=== PATIENT | female | born 1955 | race Caucasian/White ===

== ENCOUNTER 2019-05-27 00:08 | Day surgery (SDC) | payer OTHER, SELFPAY ==
[2019-05-16 10:50] VITALS: BMI 28.5
[2019-05-27 07:11] VITALS: BP 131/87; PULSE 87; RESP 16; TEMP 37; O2SAT 96
[2019-05-27] MEDS: LACTATED RINGERS 1,000 ML 150 ML IV CONT (07:16)
--- NOTE | 2019-05-27 07:22 | WPDANESEPPF ---
Anes - Initial Pre Proc Eval Procedure: Operation Date: 05/27/19 08:00 Proposed Procedures p Screening Colonoscopy - Jonah Deutsch MD Date/Time: 05/27/19 07:22 Surgeon: Jonah Deutsch MD Pre Op Diagnosis: Hx Of Colon Polyps Patient Data Age: 64 Gender: F Height: 1.6 m Weight: 74.8 kg Last Vital Signs Temp 37.0 C 05/27/19 07:11 Pulse 87 05/27/19 07:11 Resp 16 05/27/19 07:11 BP 131/87 05/27/19 07:11 Pulse Ox 96 05/27/19 07:11 Allergies Allergy/AdvReac Type Severity Reaction Status Date / Time poison winnie extract Allergy Unknown unknown Verified 05/27/19 06:48 pollen extracts Allergy Unknown unknown Verified 05/27/19 06:48 simvastatin Allergy Unknown unknown Verified 05/27/19 06:48 sulfamethizole Allergy Unknown liver Verified 05/27/19 06:48 injury sulfamethoxazole Allergy Unknown unk Verified 05/27/19 06:48 trimethoprim Allergy Unknown liver Verified 05/27/19 06:48 injury Home Medications Medication Instructions Recorded Confirmed Type cholecalciferol (vitamin D3) 125 5,000 unit PO DAILY #90 cap 03/20/19 05/16/19 Rx mcg (5,000 unit) capsule estradiol 10 mcg vaginal tablet 10 mcg VAGINAL 2XW #24 tablet 03/20/19 05/16/19 Rx montelukast 10 mg tablet 10 mg PO .in the evening #90 tablet 03/20/19 05/16/19 Rx pitavastatin calcium 4 mg tablet 4 mg PO DAILY #90 tablet 03/20/19 05/16/19 Rx valsartan 320 1 tablet PO DAILY #90 tablet 03/20/19 05/16/19 Rx mg-hydrochlorothiazide 25 mg tablet duloxetine 20 mg capsule,delayed 20 mg PO BID 04/11/19 05/27/19 History release Patient hx anesthesia problems: none Family hx anesthesia problems: none PMFSH Past Medical History Medical History (Updated 05/27/19 @ 07:26 by Sagar Cisneros MD) Chronic GERD HTN (hypertension) Mild intermittent asthma Mixed hyperlipidemia ZEHRA (obstructive sleep apnea) Family History Family History (Updated 02/12/19 @ 08:55 by DOCTOR UNKNOWN) Grandparent Hypertension Social History Social History Smoking status: Never smoker Second hand tobacco smoke exposure: Yes Alcohol intake: current Gender identity (if verbalized by the patient): Female Anes - Eval Final PreProcedure Day of Procedure 05/27/19 07:22 Patient weight: overweight Heart: regular rate and rhythm Lungs: clear to auscultation and normal air movement Airway: Mallampati scale class II Neurological: alert and oriented Last oral intake: >/= 8 hours ASA classification: II Emergent: no Anesthetic plan: proceed Anesthesia type and monitoring: general GIVS Informed Consent: The patient's anesthetic plan and its attendant risks and benefits were discussed with the patient/family/POA. Questions were solicited and answers provided to the satisfaction of the patient/family/POA.
--- NOTE | 2019-05-27 08:16 | PM.HPGS ---
History of Present Illness History of Present Illness Consent: Risks, benefits, and alternatives have been discussed and questions answered. Patient agrees to proceed with procedure. Chief complaint: Hx Of Colon Polyps Narrative: Viki Mitchell is a 64 year old female with history of polyps, last colonoscopy about 7 years ago Review of Systems Constitutional: Constitutional: Denies headache(s) and Denies weakness Eyes: Eyes: Denies blurry vision ENT: Reports Normal hearing present, Denies headache(s) and Denies neck pain Cardiovascular: Cardiovascular: Denies chest pain and Denies dyspnea Respiratory: Respiratory: Denies dyspnea Gastrointestinal: Gastrointestinal: Reports no additional gastrointestinal complaints Genitourinary: Genitourinary: Denies dysuria Musculoskeletal: Musculoskeletal: Denies neck pain Integumentary/Breasts: Skin/Breast: Denies dry skin Neurologic: Reports Normal hearing present, Denies headache(s) and Denies weakness Psychiatric: Psychiatric: Denies anxiety Endocrine: Endocrine: Denies change in body appearance Hematologic/Lymphatic: Hematologic/Lymphatic: Denies easy bleeding Allergic/Immunologic: Allergic/Immunologic: Denies urticaria PMFSH Past Medical History Medical History (Updated 05/27/19 @ 08:17 by Jonah Deutsch MD) Adenomatous colon polyp Chronic GERD HTN (hypertension) Mild intermittent asthma Mixed hyperlipidemia ZEHRA (obstructive sleep apnea) Family History Family History (Updated 02/12/19 @ 08:55 by DOCTOR UNKNOWN) Grandparent Hypertension Social History Social History Smoking status: Never smoker Second hand tobacco smoke exposure: Yes Alcohol intake: current Gender identity (if verbalized by the patient): Female Meds Home Medications and Allergies Home Medications Medication Instructions Recorded Confirmed Type cholecalciferol (vitamin D3) 125 5,000 unit PO DAILY #90 cap 03/20/19 05/16/19 Rx mcg (5,000 unit) capsule estradiol 10 mcg vaginal tablet 10 mcg VAGINAL 2XW #24 tablet 03/20/19 05/16/19 Rx montelukast 10 mg tablet 10 mg PO .in the evening #90 tablet 03/20/19 05/16/19 Rx pitavastatin calcium 4 mg tablet 4 mg PO DAILY #90 tablet 03/20/19 05/16/19 Rx valsartan 320 1 tablet PO DAILY #90 tablet 03/20/19 05/16/19 Rx mg-hydrochlorothiazide 25 mg tablet duloxetine 20 mg capsule,delayed 20 mg PO BID 04/11/19 05/27/19 History release Allergies Allergy/AdvReac Type Severity Reaction Status Date / Time poison winnie extract Allergy Unknown unknown Verified 05/27/19 06:48 pollen extracts Allergy Unknown unknown Verified 05/27/19 06:48 simvastatin Allergy Unknown unknown Verified 05/27/19 06:48 sulfamethizole Allergy Unknown liver Verified 05/27/19 06:48 injury sulfamethoxazole Allergy Unknown unk Verified 05/27/19 06:48 trimethoprim Allergy Unknown liver Verified 05/27/19 06:48 injury Vital Signs Vital Signs - 24 hr 05/27/19 07:11 Temperature 98.6 F Pulse Rate 87 Respiratory Rate 16 Blood Pressure 131/87 Pulse Oximetry 96 Exam Const: General: comfortable and no acute distress HENMT: General nose exam: Normal nares present Eyes: General: appearance normal, both eyes and all related structures Neck: Neck: no JVD Resp: Auscultation: clear to auscultation bilaterally Cardio: Rate: regular rate Rhythm: regular rhythm GI: Inspection: non-distended GI Palp: Yes Soft to palpation Skin: General skin exam: normal color Neuro: General: gait normal Speech: normal speech Extrem: General: normal to inspection Psych: Mental Status: mental status grossly normal Assessment and Plan Assessment and plan (1) Adenomatous colon polyp: Qualifiers: Colon location: unspecified part of colon Qualified Code(s): D12.6 - Benign neoplasm of colon, unspecified Code(s): D12.6 - Benign neoplasm of colon, unspecif
[2019-05-27 08:37] VITALS: BP 100/68; PULSE 65; RESP 16; O2SAT 98
[2019-05-27 08:47] VITALS: BP 102/68; PULSE 68; RESP 16; O2SAT 98
[2019-05-27 08:57] VITALS: BP 110/68; PULSE 60; RESP 16; O2SAT 98
== END 2019-05-27 09:12 | disposition home or self-care (01) ==
PROVIDERS: PCP Internal Medicine; Visit Provider Internal Medicine Gastroenterology
PROC: 0DJD8ZZ Inspection of Lower Intestinal Tract, Via Natural or Artificial Opening Endoscopic (ICD-10-PCS; CPT 45378; principal; 2019-05-27 08:00)
DX: Z12.11 Encounter for screening for malignant neoplasm of colon (principal); K64.4 Residual hemorrhoidal skin tags; I10 Essential (primary) hypertension; E78.2 Mixed hyperlipidemia; J45.20 Mild intermittent asthma, uncomplicated; G47.33 Obstructive sleep apnea (adult) (pediatric); K21.9 Gastro-esophageal reflux disease without esophagitis
CPT/HCPCS: 45378; J2704; J7120